=== PATIENT | female | born 1950 | race Caucasian/White ===

== ENCOUNTER 2017-02-21 16:08 | Outpatient (CLI) ==
[2013-06-13 15:41] VITALS: BMI 19.6
[2017-02-21 16:22] LABS: BASOPHILS # (AUTO) 0.1 K/uL (0-0.2); BASOPHILS % (AUTO) 0.7 % (0.0-3.0); EOSINOPHILS # (AUTO) 0.1 K/ul (0.0-0.7); EOSINOPHILS % (AUTO) 1.1 % (0.0-7.0); HEMATOCRIT 38.7 % (37.0-47.0); HEMOGLOBIN 13.5 g/dl (12.0-16.0); IMMATURE GRANULOCYTE % (AUTO) 0.3 % (0.0-5.0); LYMPHOCYTES % (AUTO) 27.6 (10.0-50.0); MEAN CORPUSCULAR HEMOGLOBIN 31.3 pg (27.0-31.0); MEAN CORPUSCULAR HGB CONC 34.9 (31.8-35.4); MEAN CORPUSCULAR VOLUME 89.8 fl (81.0-99.0); MONOCYTES # (AUTO) 0.4 K/uL (0.4-2.0); MONOCYTES % (AUTO) 5.8 (0-10); NEUTROPHILS # (AUTO) 4.6 K/ul (2.0-6.9); NEUTROPHILS % (AUTO) 64.5; PLATELET COUNT 371 10^3/uL (140-440); RED BLOOD COUNT 4.31 10^6/ul (4.20-5.40)
[2017-02-21 17:01] LABS: ALBUMIN 3.6 g/dL (3.4-5.0); ALBUMIN/GLOBULIN RATIO 1.06; ANION GAP 13.7; BILIRUBIN,TOTAL 0.29 mg/dL (0.00-1.20); BUN/CREATININE RATIO 12.08; CALCIUM 9.4 mg/dL (8.2-10.2); CHOL/HDL RATIO 2.3 (4.5-5.5); CREATININE 0.91 mg/dL (0.60-1.30); POTASSIUM 3.7 mmol/L (3.5-5.10)
== END 2017-02-21 16:09 | disposition home or self-care (01) ==
LOC: LAB 16:08
PROVIDERS: ATTEND Emergency Medicine
DX: I25.10 Atherosclerotic heart disease of native coronary artery without angina pectoris (principal); I11.9 Hypertensive heart disease without heart failure; E78.5 Hyperlipidemia, unspecified
CPT/HCPCS: 36415; 80053; 80061; 84443; 85025

== ENCOUNTER 2017-08-24 14:05 | Inpatient (IN) ==
[2017-08-24] MEDS ORDERED: TYLENOL PO PRN (14:39)
[2017-08-24 14:58] VITALS: BMI 21.1
[2017-08-24] MEDS ORDERED: ZITHROMAX PO SCH (15:30)
--- NOTE | 2017-08-24 15:43 | DI ---
EXAM: CHEST FRONTAL VIEW HISTORY: Sepsis. COMPARISON: 04/20/2016 FINDINGS: Heart size remains within normal limits. Mild hyperinflation. Diffuse chronic-appearing interstitial changes with no obvious consolidated pneumonia, pleural fluid, pneumothorax or vascular congestion. Possible contrast agent within some the left upper bowel. IMPRESSION: No acute cardiopulmonary process.
[2017-08-24] MEDS ORDERED: FLEXERIL PO PRN (15:45)
[2017-08-24] MEDS ORDERED: NITROSTAT SL PRN (15:45)
[2017-08-24] MEDS: DEXTROSE 5%-1/2NS IV SOLUTION 1,000 ML IV SCH (16:36)
[2017-08-24] MEDS: ROCEPHIN 1 GM in SODIUM CHLORIDE 50 ML IV SCH (16:36)
[2017-08-24] MEDS: XOPENEX 1.25 MG NEB SCH ×3 (16:56→22:48)
[2017-08-24] MEDS: TAMIFLU PO SCH ×2 (17:58→21:04)
[2017-08-24] MEDS ORDERED: PRAVACHOL PO SCH (21:00)
[2017-08-24] MEDS ORDERED: CALCIUM CARBONATE PO SCH (21:00)
[2017-08-24] MEDS ORDERED: CALCIUM 500 + VIT D 200 MG TABLET PO SCH (21:00)
[2017-08-24] MEDS ORDERED: TOPROL XL PO SCH (21:00)
[2017-08-24] MEDS ORDERED: LIPITOR PO SCH (21:00)
[2017-08-24] MEDS ORDERED: ULTRAM PO SCH (21:00)
[2017-08-24] MEDS ORDERED: KLONOPIN PO SCH (21:00)
[2017-08-24] MEDS ORDERED: VITAMIN D3 PO SCH (21:00)
[2017-08-24] MEDS ORDERED: PLAVIX PO SCH (21:00)
[2017-08-24] MEDS ORDERED: NON-FORMULARY MEDICATION (Atorvastatin Calcium [Lipitor] 40 MG) PO SCH (21:00)
[2017-08-24] MEDS ORDERED: [UNRECOGNIZED DRUG - OTHER] PO SCH (21:00)
[2017-08-24] MEDS: TESSALON PERLES PO PRN (21:13)
[2017-08-24] MEDS: SOLU-MEDROL 125 MG IVP SCH (22:14)
[2017-08-25] MEDS ORDERED: ULTRAM PO PRN (02:15)
[2017-08-25] MEDS: XOPENEX 1.25 MG NEB SCH ×4 (05:03→11:00)
[2017-08-25] MEDS: SOLU-MEDROL 125 MG IVP SCH ×2 (06:30→13:00)
[2017-08-25] MEDS: DEXTROSE 5%-1/2NS IV SOLUTION 1,000 ML IV SCH (06:31)
[2017-08-25] MEDS: TESSALON PERLES PO PRN (08:03)
[2017-08-25] MEDS: ROCEPHIN 1 GM in SODIUM CHLORIDE 50 ML IV SCH (08:03)
[2017-08-25] MEDS: TAMIFLU PO SCH (08:03)
[2017-08-25 11:25] VITALS: BP 92/60; TEMP 97.8
--- NOTE | 2017-08-25 12:28 | PCM.PROG ---
Attending Provider: ATTENDING PROVIDER: Dr. CARYL GUAMAN This patient is seen with Luisa Nick, Nurse Practitioner. DATE OF SERVICE: 08/25/17 SUBJECTIVE: This 67 year old WHITE/ F was hospitalized 08/24/17. Alert, sitting up in the bed. Fever last night. Chest x-ray normal. Feeling much better REVIEW OF SYSTEMS: CONSTITUTIONAL: No night sweats. No fatigue, malaise, lethargy. Fever. Aches. HEENT: Eyes: No visual changes. No eye pain. No eye discharge. ENT: No runny nose. No epistaxis. No sinus pain. No odynophagia. No congestion. RESPIRATORY: Cough, no congestion. No hemoptysis. No shortness of breath. CARDIOVASCULAR: No angina symptoms. No CHF symptoms. No atypical chest pain for CAD. No palpitations. No orthopnea.. GASTROINTESTINAL: No abdominal pain. No nausea or vomiting. No diarrhea or constipation. No hematemesis. No hematochezia. GENITOURINARY: No urgency. No frequency. No dysuria. No hematuria. No obstructive symptoms. No discharge. No pain. No significant abnormal bleeding. MUSCULOSKELETAL: No musculoskeletal pain; no joint swelling. NEUROLOGICAL: Awake, alert, oriented to time, place and person. No headache. No neck pain. No syncope. No seizures. No dizziness. PSYCHIATRIC: Not anxious. No depression. No suicidal thoughts. No homicidal thoughts. SKIN: No rash. No lesions. No wounds. ENDOCRINE: No unexplained weight loss. No weight gain. HEMATOLOGIC/LYMPHATIC: No anemia. No purpura. No petechiae. No prolonged or excessive bleeding. No palpable lymph nodes. PHYSICAL EXAMINATION: GENERAL: The patient is awake, alert and oriented, lying/sitting in bed in no distress. VITAL SIGNS: Temperature 97.6 F, Pulse 66, Respiratory Rate 20, BP 88/60, Pulse Ox 89% HEENT: Head normocephalic, atraumatic. Eyes: Extraocular muscles are intact. Pupils are equal, round and reactive to light and accommodation. Ears: No lesions. Nose appeared normal. Throat: No exudate or erythema. NECK: Supple. No JVD, no carotid bruit. No lymphadenopathy or thyromegaly. LUNGS: Diminished breath sounds bilaterally. Clear to auscultation. Percussion note normal. Chest symmetrical. HEART: S1, S2, no S3. No murmurs. No cyanosis or clubbing. No ascites. Pulses: Dorsalis pedis and posterior tibial pulses +1 to +2 both sides. ABDOMEN: Soft. Non-tender. Bowel sounds active. No CVA tenderness. No mass felt. EXTREMITIES: No edema. Full range of motion of all extremities, equal. NEUROLOGIC: No focal deficit. Cranial nerves II through XII are grossly intact. No headache, no double vision or headache. SKIN: Not dry. Intact. Turgor-normal. LYMPHATIC: No palpable lymph nodes/no lymphedema. MUSCULOSKELETAL: Normal joints with no swelling. Muscle tone is normal. LAB REVIEW: 08/25/17 05:30 08/25/17 05:30 08/25/17 05:30: Sodium 133 L, Potassium 4.0, Chloride 102, Carbon Dioxide 20 L, Anion Gap 15.0, BUN 10, Creatinine 0.67, Estimated GFR (MDRD) 88.00, BUN/ Creatinine Ratio 14.92, Glucose 204 H D, Calcium 8.7, Total Bilirubin 0.3, AST 31, ALT 13, Alkaline Phosphatase 83, Total Protein 6.7, Albumin 3.2 L, Globulin 3.5, Albumin/Globulin Ratio 0.91 08/25/17 05:30: WBC 5.59, RBC 4.19 L, Hgb 12.9, Hct 38.3, MCV 91.4, MCH 30.8, MCHC 33.7, RDW Coeff of An 12.9, Plt Count 277, Immature Gran % (Auto) 0.4, Neut % (Auto) 84.9, Lymph % (Auto) 12.2, [place] % (Auto) 2.1, Eos % (Auto) 0.0, Baso % (Auto) 0.4, Immature Gran # (Auto) 0.0, Neut # 4.8, Lymph # 0.7, [place] # 0.1 L, Eos # 0.0, Baso # 0.0 08/24/17 19:58: Urine Color Yellow, Urine Clarity Clear, Urine pH 6.0, Ur Specific [place] 1.020, Urine Protein 2+, Urine Glucose (UA) Negative, Urine Ketones Trace, Urine Blood 2+, Urine Nitrite Negative, Urine Bilirubin 1+, Urine Urobilinogen 0.2, Ur Leukocyte Esterase Negative, Urine Microscopic RBC 10 -20, Urine Microscopic WBC 0-2, Ur Squamous Epith Cells 5-10, Ur Renal Epithelial Cell 0-2, Amorphous Sediment 1+, Urine Bacteria 1+, Urine Mucus Trace 08/24/17 15:40: Direct Bilirubin 0.16 08/24/17 15:40: Lactic Acid 6.6 08/24/17 15:40: Procalcitonin < 0.05 08/24/17 15:40: Sodium 133 L, Potassium 4.0, Chloride 101, Carbon Dioxide 20 L, Anion Gap 16.0, BUN 12, Creatinine 0.66, Estimated GFR (MDRD) 90.00, BUN/ Creatinine Ratio 18.18, Glucose 100, Calcium 8.9, Total Bilirubin < 0.3, AST 34 , ALT 13, Alkaline Phosphatase 88, Total Protein 7.0, Albumin 3.6, Globulin 3.4 , Albumin/Globulin Ratio 1.06 08/24/17 15:40: PT 9.9, INR 0.97, APTT 27.2 08/24/17 15:40: WBC 7.63, RBC 4.30, Hgb 13.2, Hct 39.1, MCV 90.9, MCH 30.7, MCHC 33.8, RDW Coeff of An 13.0, Plt Count 286, Immature Gran % (Auto) 0.3, Neut % (Auto) 75.8, Lymph % (Auto) 13.6, [place] % (Auto) 9.6, Eos % (Auto) 0.0, Baso % (Auto) 0.7, Immature Gran # (Auto) 0.0, Neut # 5.8, Lymph # 1.0, Pine # 0.7, Eos # 0.0, Baso # 0.1 08/24/17 15:03: Influenza A (Rapid) Positive H, Influenza B (Rapid) Negative ASSESSMENT: Please see below. Influenza A COPD Mild dehydration, improved PLAN: The patient would like to go home later this evening. Tamiflu 75mg twice a day for 5 days Keflex 500mg three times a day times 10 day Prednisone 20mg twice a day time 2 day then 10mg twice a day times 5 days NEBS treatment at home Plan and coordination of the patient's care discussed in the presence of Commissary Agent and nurse. SCRIBED BY: DELANEY ANDRADE Mineralogy Professor scribed while in presence of service performed by Dr. Guaman/Luisa Nick APRN on 08/25/17 (0200)
--- NOTE | 2017-08-25 13:38 | CM.DICTOOL ---
ADMISSION: 08/24/17 14:05 DISCHARGE: August 25, 2017 DATE OF SERVICE: 08/25/17 FINAL DIAGNOSIS Influenza A Fever Dehydration Pleuritic Pain CAD with stent application PAD, Left subclavian stenosis Hypertension Dyslipidemia Sleep Apnea COPD History of Cataracts Generalized Anxiety Disorder Paroxysmal SVT LAST VITALS Temp Pulse Resp BP Pulse Ox 97.8 F 68 16 92/60 89 L 08/25/17 10:00 08/25/17 10:00 08/25/17 10:00 08/25/17 10:00 08/25/17 06:00 ACTIVE HOME MEDICATIONS Atorvastatin Calcium (Lipitor) 40 mg PO BEDTIME [facility] [place] Last Admin: 08/24/17 21:05 Dose: 40 mg Calcium/Vitamin D (Calcium 500 + Vit D 200 Mg Tablet) 2 each PO BEDTIME [facility] [place] Last Admin: 08/24/17 21:05 Dose: 2 each Clonazepam (Klonopin) 0.5 mg PO BEDTIME [facility] [place] Last Admin: 08/24/17 21:04 Dose: 0.5 mg Clopidogrel Bisulfate (Plavix) 75 mg PO BEDTIME [facility] [place] Last Admin: 08/24/17 21:04 Dose: 75 mg Cyclobenzaprine HCl (Flexeril) 10 mg PO BEDTIME PRN PRN Reason: Mild Pain Metoprolol Succinate (Toprol Xl) 50 mg PO BEDTIME [facility] [place] Last Admin: 08/24/17 21:05 Dose: 50 mg Nitroglycerin (Nitrostat) 0.4 mg SL Q5MIN X 3 DOSES PRN PRN Reason: Angina Tramadol HCl (Ultram) 50 mg PO BID PRN PRN Reason: pain ALLERGIES codeine Adverse Reaction (Verified 08/24/17 14:45) latex Adverse Reaction (Verified 06/13/13 16:26) NEW PRESCRIPTIONS: Keflex 500 mg TID for 10 days Tamiflu 75 mg BID for 4 days Prednisone 20 mg BID for 2 days, then 10 mg BID for 5 days. Take with food SMOKING: Advised to stop smoking DISEASE SPECIFIC EDUCATION: Influenza Medications Use of steroids and risk of GI upset, bone demineralization LAB REVIEW: 08/25/17 05:30 08/25/17 05:30 08/25/17 05:30: Sodium 133 L, Potassium 4.0, Chloride 102, Carbon Dioxide 20 L, Anion Gap 15.0, BUN 10, Creatinine 0.67, Estimated GFR (MDRD) 88.00, BUN/ Creatinine Ratio 14.92, Glucose 204 H D, Calcium 8.7, Total Bilirubin 0.3, AST 31, ALT 13, Alkaline Phosphatase 83, Total Protein 6.7, Albumin 3.2 L, Globulin 3.5, Albumin/Globulin Ratio 0.91 08/25/17 05:30: WBC 5.59, RBC 4.19 L, Hgb 12.9, Hct 38.3, MCV 91.4, MCH 30.8, MCHC 33.7, RDW Coeff of An 12.9, Plt Count 277, Immature Gran % (Auto) 0.4, Neut % (Auto) 84.9, Lymph % (Auto) 12.2, [place] % (Auto) 2.1, Eos % (Auto) 0.0, Baso % (Auto) 0.4, Immature Gran # (Auto) 0.0, Neut # 4.8, Lymph # 0.7, [place] # 0.1 L, Eos # 0.0, Baso # 0.0 08/24/17 19:58: Urine Color Yellow, Urine Clarity Clear, Urine pH 6.0, Ur Specific [place] 1.020, Urine Protein 2+, Urine Glucose (UA) Negative, Urine Ketones Trace, Urine Blood 2+, Urine Nitrite Negative, Urine Bilirubin 1+, Urine Urobilinogen 0.2, Ur Leukocyte Esterase Negative, Urine Microscopic RBC 10 -20, Urine Microscopic WBC 0-2, Ur Squamous Epith Cells 5-10, Ur Renal Epithelial Cell 0-2, Amorphous Sediment 1+, Urine Bacteria 1+, Urine Mucus Trace 08/24/17 15:40: Direct Bilirubin 0.16 08/24/17 15:40: Lactic Acid 6.6 08/24/17 15:40: Procalcitonin < 0.05 08/24/17 15:40: Sodium 133 L, Potassium 4.0, Chloride 101, Carbon Dioxide 20 L, Anion Gap 16.0, BUN 12, Creatinine 0.66, Estimated GFR (MDRD) 90.00, BUN/ Creatinine Ratio 18.18, Glucose 100, Calcium 8.9, Total Bilirubin < 0.3, AST 34 , ALT 13, Alkaline Phosphatase 88, Total Protein 7.0, Albumin 3.6, Globulin 3.4 , Albumin/Globulin Ratio 1.06 08/24/17 15:40: PT 9.9, INR 0.97, APTT 27.2 08/24/17 15:40: WBC 7.63, RBC 4.30, Hgb 13.2, Hct 39.1, MCV 90.9, MCH 30.7, MCHC 33.8, RDW Coeff of An 13.0, Plt Count 286, Immature Gran % (Auto) 0.3, Neut % (Auto) 75.8, Lymph % (Auto) 13.6, [place] % (Auto) 9.6, Eos % (Auto) 0.0, Baso % (Auto) 0.7, Immature Gran # (Auto) 0.0, Neut # 5.8, Lymph # 1.0, [place] # 0.7, Eos # 0.0, Baso # 0.1 08/24/17 15:03: Influenza A (Rapid) Positive H, Influenza B (Rapid) Negative PLAN: Discharge home Diet: Regular as tolerated Activity: Resume as tolerated May use nebulizer treatments 3-4 times daily Continue medications as listed on nursing discharge information sheet Do not continue previous prescription for Azithromycin or Prednsione. You have been given new Prescriptions Please wash your hands after coughing, influenza is spread via Droplet precautions. Cover your mouth with cough. An appointment is scheduled with Dr. Duff/Luisa Nick APRN on September 01 at 10:30 AM Mrs. Avila is alert and oriented x 3. She is independent with ADL"S and requires no assistance with ambulation. Meal intakes are good at 75%. She denies nausea. She is afebrile. Skin is intact and free of rashes, irritation of decubitus ulcers. Deshawn Duff MD Luisa Nick APRN
--- NOTE | 2017-08-29 09:27 | PN ---
DATE OF SERVICE: 08/25/17 SUBJECTIVE: The patient was hospitalized with acute bronchitis and has Influenza A. The patient's condition has improved remarkably. Hydration status has improved with IV fluids. She is on double antibiotics and coughing much less. The patient's flu type of symptoms seems to be under control. The patient wants to go home. She is stable and she is afebrile. The patient has coronary artery disease and is a heavy smoker. The patient is up and about. PHYSICAL EXAMINATION: HEENT: Head normocephalic, atraumatic. Eyes: Extraocular muscles are intact. Pupils are equal, round and reactive to light and accommodation. Ears: No lesions. Nose appeared normal. Throat: No exudate or erythema. NECK: Supple. No JVD, no carotid bruit. No lymphadenopathy or thyromegaly. LUNGS: Decreased breath sounds with mild wheeze. Percussion note normal. Chest symmetrical. HEART: S1, S2, no S3. No murmurs. No cyanosis or clubbing. No ascites. Pulses: Dorsalis pedis and posterior tibial pulses +1 to +2 both sides. ABDOMEN: Soft. Nontender. Bowel sounds active. No CVA tenderness. No mass felt. EXTREMITIES: No edema. Full range of motion of all extremities, equal. NEUROLOGIC: No focal deficit. Cranial nerves II through XII are grossly intact. No headache, no double vision or headache. SKIN: Not dry. Intact. Turgor - normal. LYMPHATIC: No palpable lymph nodes/no lymphedema. MUSCULOSKELETAL: Normal joints with no swelling. Muscle tone is normal. PLAN: 1. Counseling for smoking done. 2. To be discharged. CONDITION: Stable The patient was seen and examined with Nurse Practitioner. TIME SPENT: More than 30 minutes. Plan and coordination of the patient's care discussed in the presence of nurse. LORRIE
--- NOTE | 2017-09-08 14:34 | HP ---
DATE OF SERVICE: 08/24/17 HISTORY OF PRESENT ILLNESS: This 67-year-old female started feeling bad Monday. She had fever last night of 102. Pain with inspiration/cough. PAST MEDICAL HISTORY: Hypertension CAD with stent, Dr. [place] PAD Dyslipidemia COPD, smoking Sleep apnea Generalized anxiety disorder Carpal tunnel syndrome bilaterally Paroxysmal SVT Post menopause PAST SURGICAL HISTORY: Hysterectomy Bilateral breast implants Cardiac stent 01/18 Hernia Gallbladder REVIEW OF SYSTEMS: CONSTITUTIONAL: Fever and fatigue. HEENT: Sinus drainage and sore throat. RESPIRATORY: Positive for cough. No hemoptysis. CARDIOVASCULAR: Atypical chest pain for coronary artery disease -pleuritic type. No angina, CHF symptoms, palpitations or shortness of breath. GASTROINTESTINAL: Decreased appetite. No melena or abdominal pain. No GERD. GENITOURINARY: No hematuria, no polyuria. GRAIN ELEVATOR MAN: Positive for headache. No blackout, no dizziness, no double vision. MUSCULOSKELETAL: Osteoarthritis pain. No joint swelling. ENDOCRINE: No weight loss, no weight gain. SKIN: Dry. No rash. PSYCHIATRIC: Not anxious, no depression, no suicidal thoughts, no homicidal thoughts. SOCIAL HISTORY: Smoker, one pack per day, for 20+ years. . Alcohol: Occasional wine. No illicit drug use. Two children. FAMILY HISTORY: Father living. Mother . One brother, two sisters. MEDICATIONS: Toprol XL 50 mg p.o. bedtime Tramadol 50 mg p.o. b.i.d. Calcium 1200 mg one daily Plavix 75 mg one daily Neb treatment p.r.n. Klonopin 0.5 mg one daily Lipitor 40 mg one daily Nitroglycerin 4 mg p.r.n. Flexeril 10 mg h.s. p.r.n. Macrobid 100 mg b.i.d. + Pyridium 200 mg ALLERGIES: CODEINE, LATEX PHYSICAL EXAMINATION: V/S: Pulse 90, BP 110/70, temperature 100.8, 02 sat 97%, weight 122.6, height 5 '5". GENERAL APPEARANCE: Oriented times three. Pallor, clammy. HEENT: Normal. NECK: No JVP, no bruits. RESPIRATORY: Decreased breath sounds, rhonchi on the right. CARDIOVASCULAR: S1, S2, no S3, no murmurs. No cyanosis, clubbing. No ascites. GI/ABDOMEN: No tenderness. Bowel sounds are active. EXTREMITIES: No edema, pulses +1, equal. GRAIN ELEVATOR MAN: Deep tendon reflexes, sensory, motor and gait all normal. RECTAL/PELVIC: Colonoscopy - Dr. Turner 11/15. Pelvic: Hysterectomy; breasts - order given. LABS: Hemoglobin 13.2, hematocrit 39.1, white count 7.63, Influenza A positive. ASSESSMENT: 1. PNEUMONITIS 2. PLEURITIC PAIN - BILATERAL 3. FEVER 4. DEHYDRATION 5. CAD WITH STENT 01/18, CATHETERIZATION DR. [place] 6. PERIPHERAL ARTERIAL DISEASE LEFT SUBCLAVIAN STENOSIS 7. HYPERTENSION 8. DYSLIPIDEMIA 9. SLEEP APNEA 10. COPD 11. HISTORY OF CARPAL TUNNEL SYNDROME BILATERALLY 12. GENERALIZED ANXIETY DISORDER 13. PAROXYSMAL SVT PLAN: 1. Continue home medications 2. Routine telemetry orders 3. CBC, CMP 4. Chest x-ray 5. Rapid flu A & B test 6. Blood culture times two 7. Sputum culture 8. Rocephin 1 gm IV daily 9. Solu-Medrol 100 mg IV q.8hr 10. Xopenex neb treatment q.6h 11. Zithromax 500 mg p.o. daily times three days 12. D5 1/2 NS at 50 cc/hr 13. Tylenol 650 mg q.4h p.r.n. for fever 14. Tessalon Perles 100 mg t.i.d. p.r.n. p.o. 15. Urinalysis TIME SPENT: More than 70 minutes. MTDD
--- NOTE | 2017-09-08 14:36 | PN ---
CODING FOR BILLING 08/24/17 LEVEL 5 08/25/17 DISCHARGE MTDD
--- NOTE | 2017-09-09 12:48 | DS ---
DATE OF SERVICE: 08/25/17 FINAL DIAGNOSIS: 1. INFLUENZA A 2. FEVER 3. DEHYDRATION 4. PLEURITIC PAIN 5. CAD WITH STENT APPLICATION 6. PAD, LEFT SUBCLAVIAN STENOSIS 7. HYPERTENSION 8. DYSLIPIDEMIA 9. SLEEP APNEA 10. COPD 11. HISTORY OF CATARACTS 12. GENERALIZED ANXIETY DISORDER 13. PAROXYSMAL SVT DISCHARGE INSTRUCTIONS: Followup appointment: Dr. Duff/Luisa Nick APRN on 09/01/17 at 10:30 a.m. MEDICATIONS AT DISCHARGE: Lipitor 40 mg p.o. bedtime CONRADO Calcium/Vitamin D two each p.o. bedtime CONRADO Klonopin 0.5 mg p.o. bedtime CONRADO Plavix 75 mg p.o. bedtime CONRADO Flexeril 10 mg p.o. bedtime p.r.n. Toprol XL 50 mg p.o. bedtime CONRADO Nitrostat 0.4 mg SL q.5 min times three doses p.r.n. Ultram 50 mg p.o. b.i.d. p.r.n. NEW PRESCRIPTIONS: Keflex 500 mg t.i.d. for 10 days Tamiflu 75 mg b.i.d. for 4 days Prednisone 20 mg b.i.d. for 2 days, then 10 mg b.i.d. for 5 days. Take with food. DIET INSTRUCTIONS: Regular as tolerated ACTIVITY: Resume as tolerated SMOKING: Advised to stop smoking DISEASE SPECIFIC EDUCATION: Influenza Medications Use of steroids and risk of GI upset, bone demineralization HOSPITAL COURSE: 67-year-old white female who was a direct admit from our office. She had been experiencing fever for the past 24 to 36 hours. She also had increasing cough and congestion. She previously had been started on Keflex as a call out earlier in the week when she did not have any fever just congestion. This then worsened and she began running fever approximately 36 hours prior to admission. She was admitted, rapid Flu A & B test was done. She was positive for Influenza A. Chest x-ray revealed changes associated with COPD. There was no pneumonia. She did have some adventitious breath sounds consistent with bronchitis, mild shortness of breath and pleuritic type pain. She was admitted, placed on Solu- Medrol 125 mg IV q.8hr along with D5 1/2 NS of 50 cc/hr. Given Tylenol p.o. for the fever and started on Rocephin 1 gm IV. This morning the patient states she has felt remarkably better. She has not had any fever since the night before. Her breathing is much better with steroids. She request that she go home today. She states that she has to continue working. She currently breeds dogs. She has no complications associated with the flu. All of her labs appear to be stable. Kidney function is normal after IV fluids. BUN 10, creatinine 0.67. Again, vital signs have been steady. Temperature 97.6, heart rate 66, respirations 20. Her breathing is much better. She is experiencing minimal pain. We will discharge her home on Tamiflu 75 mg b.i.d. p.o. for the next four days to complete a five day course along with Keflex 500 mg t.i.d. for the next 7 days and Prednisone 20 mg b.i.d. for two days then 10 mg b.i.d. for five days. She is to continue with Tylenol as needed for fever. She is advised that she needs to quit smoking. She is contagious until she is afebrile for at least 24 hours. Instructed that she needs to continue with increased rest and increased fluids. If she still has fever she is to see us back next week. TIME SPENT: More than 60 minutes. LORRIE
== END 2017-08-25 15:05 | disposition home or self-care (01) | DRG 194 ==
LOC: MEDSURG A 14:05
PROVIDERS: ADMIT Internal Medicine; ATTEND Internal Medicine
DX: J10.1 Influenza due to other identified influenza virus with other respiratory manifestations (principal); I47.1 Supraventricular tachycardia; J44.0 Chronic obstructive pulmonary disease with (acute) lower respiratory infection; R50.9 Fever, unspecified; J20.9 Acute bronchitis, unspecified; I10 Essential (primary) hypertension; I25.10 Atherosclerotic heart disease of native coronary artery without angina pectoris; I77.89 Other specified disorders of arteries and arterioles; E86.0 Dehydration; R07.81 Pleurodynia; E78.5 Hyperlipidemia, unspecified; G47.30 Sleep apnea, unspecified; J44.9 Chronic obstructive pulmonary disease, unspecified; F41.1 Generalized anxiety disorder; F17.200 Nicotine dependence, unspecified, uncomplicated; Z95.5 Presence of coronary angioplasty implant and graft; Z79.02 Long term (current) use of antithrombotics/antiplatelets; Z79.899 Other long term (current) drug therapy
CPT/HCPCS: 36415; 80053; 81001; 82248; 83605; 84145; 85025; 85610; 85730; 87040; 87070; 87086; 87804; 94640

== ENCOUNTER 2018-03-15 09:03 | Outpatient (CLI) | payer OTHER ==
--- NOTE | 2018-03-15 10:57 | US ---
Exam: Hassan-scale and spectral color Doppler ultrasonographic evaluation of the carotids with [place] m analysis. Reason for exam: Syncope. Comparison: 03/06/2013. FINDINGS: There is a small amount of atheromatous plaque in the proximal right internal carotid artery The right ECA measures 0.8 meters per second Right CCA measures 0.6 / 0.2 meters per second. Right internal carotid artery peak systolic velocity measures 0.8 meters per second Right internal carotid artery/CCA PSV ratio measures 1.3 Right internal carotid artery end-diastolic velocity measures 0.3 meters per second There is normal antegrade right vertebral artery flow. Atheromatous plaque is seen in the proximal left internal carotid artery Left ECA measures 0.7 meters per second Left CCA measures 0.6 / 0.2 meters per second. Left internal carotid artery peak systolic velocity measures 0.9 meters per second Left internal carotid artery/CCA PSV ratio measures 1.7 Left internal carotid artery end-diastolic velocity measures 0.4 meters per second There is normal antegrade left vertebral artery flow. Impression: 1. No ultrasonographic evidence of significant stenotic disease is seen by peak systolic velocity viki surements in the right or left internal carotid arteries. 2. Normal antegrade vertebral artery flow bilaterally
--- NOTE | 2018-03-15 11:18 | DI ---
Exam: Two views of the chest. Comparison: 08/24/2017. Reason for exam: Chronic obstructive pulmonary disease smoker. FINDINGS: No pneumothorax, pleural effusion, or focal consolidation. The cardiac silhouette is not enlarged. The imaged osseous structures appear grossly unremarkable without acute fracture. Impression: No acute cardiopulmonary process.
--- NOTE | 2018-03-16 09:32 | MAMMO ---
EXAM: Digital screening mammogram with 3-D tomosynthesis and CAD HISTORY: Screening mammogram COMPARISON: Mammogram 03/21/2013 and 04/24/08 FINDINGS: Bilateral CC and MLO views of the breasts were performed digitally and demonstrate scatter ed fibroglandular breast density. Breast implants are in place and unchanged. Benign calcifications are present. There is no abnormal nodule or calcification. There is no significant interval change. IMPRESSION: No new suspicious calcification or mass RECOMMENDATION: Annual screening mammogram BIRADS category II: Benign findings
== END 2018-03-15 09:04 | disposition home or self-care (01) ==
LOC: RAD 09:03
PROVIDERS: ATTEND Internal Medicine
DX: Z12.31 Encounter for screening mammogram for malignant neoplasm of breast (principal); I25.10 Atherosclerotic heart disease of native coronary artery without angina pectoris; R55 Syncope and collapse; J44.9 Chronic obstructive pulmonary disease, unspecified; F17.210 Nicotine dependence, cigarettes, uncomplicated
CPT/HCPCS: 77067

== ENCOUNTER 2018-03-22 07:13 | Outpatient (CLI) | payer OTHER | END 2018-03-22 07:14 | disposition home or self-care (01) | LOC: CAR 07:13 | PROVIDERS: ATTEND Internal Medicine | DX: R06.02 Shortness of breath (principal); J44.9 Chronic obstructive pulmonary disease, unspecified; I25.10 Atherosclerotic heart disease of native coronary artery without angina pectoris; Z95.5 Presence of coronary angioplasty implant and graft; I47.1 Supraventricular tachycardia | CPT/HCPCS: 93005; 93010 ==

== ENCOUNTER 2018-05-28 14:12 | Emergency (ER) | payer OTHER ==
[2018-05-28 14:23] VITALS: BP 120/80; TEMP 98.9; BMI 20.9
[2018-05-28] MEDS ORDERED: MORPHINE 2 MG/ML SYRINGE IM STA (15:00)
[2018-05-28] MEDS ORDERED: ZOFRAN 4 MG/2 ML IM STA (15:00)
--- NOTE | 2018-05-28 15:54 | CT ---
EXAM: CT of the abdomen pelvis without contrast History: Left flank pain and right flank pain. Comparison: CT abdomen pelvis 06/14/2013 Technique: Multiplanar CT images through the abdomen pelvis were obtained without the administration of IV contrast Findings: Partially visualized bilateral breast implants. Lung bases are free of consolidation. No acute osse ous abnormalities. Severe degenerative disc disease at L4-L5 and moderate to severe degenerative disc disease at L5 and S1. Status post cholecystectomy. No renal stones and no hydronephrosis. No focal liver or splenic lesio ns. Liver is mildly enlarged. No peripancreatic inflammation. Adrenal glands are unremarkable. No ureteral calculi. No dilated loops of bowel. The appendix is normal. Scattered colonic stool. At herosclerotic vascular calcifications. No bladder wall thickening. No free air and no ascites. No inflammatory stranding. Colonic diverticulosis. Uterus is not seen. Impression: 1. No acute intra-abdominal or pelvic process. 2. No renal or ureteral calculi and no hydronephrosis. 3. Mild hepatomegaly. 4. Moderate to severe degenerative changes in the lower lumbar spine. 5. Colonic diverticulosis.
--- NOTE | 2018-05-28 16:43 | ED.PDOC ---
General ED Provider: Dr. DAR TABARES Chief Complaint: Kidney Stone Stated Complaint: back pain Time Seen by Physician: 14:13 Mode of Arrival: Walk-In Information Source: Patient Exam Limitations: No limitations Primary Care Provider: CARYL GUAMAN Nursing and Triage Documentation Reviewed and Agree: Yes Does patient meet sepsis criteria?: Yes If yes, has appropriate treatment been initiated?: No System Inflammatory Response Syndrome: Not Applicable Sepsis Protocol: For patient's 13 years and over: Temp is 96.8 and below OR 101 and greater Pulse >90 BPM Resp >20/minute Acutely Altered Mental Status Are patient's symptoms suggestive of a new infection, such as: -Pneumonia -Skin, Soft Tissue -Endocarditis -UTI -Bone, Joint Infection -Implantable Device -Acute Abdominal Infection -Wound Infection -Meningitis -Blood Stream Catheter Infection -Unknown Musculoskeletal Complaint Exam - Back Pain Complaint/Exam Mechanism of Injury: Reports: No known trauma Onset/Duration: 1 day [address] long distance developed low back pain and flank pain Symptoms Are: Still present Timing: Constant Episodes Lasting: Hours Initial Severity: Moderate Current Severity: Moderate Location: Reports: Discrete Character: Reports: Aching Aggravating: Reports: Movements, Lifting, Bending, Walking Alleviating: Reports: Rest, Position Associated Signs and Symptoms: Reports: Flank pain (right). Denies: Swelling, Redness, Bruising, Fever, Weakness, Numbness, Tingling, Abdominal pain, Bladder incontinence, Bowel incontinence, Weight loss, Pain with weight bearing Related History: Reports: Similar episode TAD Risk Factors: Reports: Hypertension AAA Risk Factors: Reports: Hypertension Cauda Equina Risk Factors: Reports: None Epidural Abcess Risk Factors: Reports: None Focal Tenderness: No Paraspinal Muscle Tenderness: No Paraspinal Muscle Spasm: No Scoliosis: No Lordosis: No Kyphosis: No SLR Test: Right Negative, Left Negative Hip Motion Testing Pain: Right Negative, Left Negative Focal Weakness: Present: None Focal Sensory Loss: Present: None Gait: Present: Normal Differential Diagnoses: Renal Colic, Strain, Sprain Review of Systems - Review Of Systems Constitutional: Reports: No symptoms Eyes: Reports: No symptoms Ears, Nose, Mouth, Throat: Reports: No symptoms Respiratory: Reports: No symptoms Cardiac: Reports: No symptoms GI: Reports: No symptoms : Reports: No symptoms Musculoskeletal: Reports: Back pain Skin: Reports: No symptoms Neurological: Reports: No symptoms Endocrine: Reports: No symptoms Hematologic/Lymphatic: Reports: No symptoms All Other Systems: Reviewed and Negative Past Medical History - Past Medical History Previously Healthy: Yes Endocrine: Reports: Dyslipidemia Cardiovascular: Reports: Hypertension Respiratory: Reports: None Hematological: Reports: None Gastrointestinal: Reports: None Genitourinary: Reports: None Neuro/Psych: Reports: None Musculoskeletal: Reports: None Cancer: Reports: None Last Menstrual Period: unknown - Surgical History General Surgical History: Reports: None - Family History Family History: Reports: None - Social History Smoking Status: Current every day smoker, Heavy tobacco smoker Hx Substance Use: No Alcohol Screening: None Physical Exam - Physical Exam Appearance: Well-appearing, No pain distress, Well-nourished Eyes: TRINA, EOMI, Conjunctiva clear ENT: Ears normal, Nose normal, Oropharynx normal Respiratory: Airway patent, Breath sounds clear, Breath sounds equal, Respirations nonlabored Cardiovascular: RRR, Pulses normal, No rub, No murmur GI/: Soft, Nontender, No masses, Bowel sounds normal, No Organomegaly Musculoskeletal: Normal strength, ROM intact, No edema, No calf tenderness Skin: Warm, Dry, Normal color Neurological: Sensation intact, Motor intact, Reflexes intact, Cranial nerves intact, Alert, Oriented Psychiatric: Affect appropriate, Mood appropriate Interpretation - Radiology Interpretation Radiology Interpretation By: Radiologist Radiology Results: No acute changes Re-Evaluation - Re-Evaluation Time of Re-Evaluation: 15:00 Status: Improved Vital Signs Stable: Yes Pain Level: 2/10 Appearance: NAD Lungs: Clear Skin: Warm and Dry Neuro: Alert and Oriented X3 CV: RRR - Re-Evaluation Time of Re-Evaluation: 16:44 (HARPAL PRESENT, SLRS WERE NEGATIVE . CT REPORT VERBALY GIVEN REPORT PROVIDED ) Status: Improved Vital Signs Stable: Yes Pain Level: 0 Appearance: NAD Skin: Warm and Dry Neuro: Alert and Oriented X3 CV: RRR Critical Care Note - Critical Care Note Total Time (mins): 0 Course - Course Hematology/Chemistry: 05/28/18 15:08 05/28/18 15:08 Orders, Labs, Meds: Lab Review 05/28/18 05/28/18 05/28/18 15:08 15:08 15:08 WBC 12.87 H RBC 4.19 L Hgb 12.9 Hct 38.5 MCV 91.9 MCH 30.8 MCHC 33.5 RDW Coeff of An 13.1 Plt Count 367 Immature Gran % (Auto) 0.3 Neut % (Auto) 69.4 Lymph % (Auto) 21.1 [place] % (Auto) 7.8 Eos % (Auto) 1.0 Baso % (Auto) 0.4 Immature Gran # (Auto) 0.0 Neut # (Auto) 8.9 H Lymph # (Auto) 2.7 [place] # (Auto) 1.0 Eos # (Auto) 0.1 Baso # (Auto) 0.1 Sodium 136.5 L Potassium 3.90 Chloride 104.2 Carbon Dioxide 24.9 Anion Gap 11.30 BUN 9.4 Creatinine 0.65 Estimated GFR (MDRD) 91.00 BUN/Creatinine Ratio 14.46 Glucose 94.9 Calcium 8.92 Total Bilirubin 0.35 AST 23.9 ALT 8.0 Alkaline Phosphatase 102.1 Total Protein 7.50 Albumin 4.11 Globulin 3.39 Albumin/Globulin Ratio 1.21 Urine Color Yellow Urine Clarity Clear Urine pH 6.0 Ur Specific [place] 1.015 Urine Protein 1+ Urine Glucose (UA) Negative Urine Ketones Negative Urine Blood 2+ Urine Nitrite Negative Urine Bilirubin Negative Urine Urobilinogen 0.2 Ur Leukocyte Esterase Negative Urine Microscopic RBC 2-5 Urine Microscopic WBC 0-2 Ur Squamous Epith Cells 0-2 Orders Category Date Time Status CBC W/ AUTO DIFF Stat LAB 05/28/18 15:08 Completed COMPREHENSIVE METABOLIC PANEL Stat LAB 05/28/18 15:08 Completed URINALYSIS C & S IF INDICATED Stat LAB 05/28/18 15:08 Completed Morphine Sulfate [Morphine 2 mg/ml Syringe] MEDS 05/28/18 15:00 Discontinued 2 mg IM ONCE STA Ondansetron HCl/Pf [Zofran 4 mg/2 ml] MEDS 05/28/18 15:00 Discontinued 4 mg IM ONCE STA CT ABD/PEL WO RENAL STONE PROT Stat RADS 05/28/18 14:57 Completed Medications Discontinued Medications Generic Name Dose Route Start Last Admin Trade Name Freq PRN Reason Stop Dose Admin Morphine Sulfate 2 mg 05/28/18 15:00 05/28/18 15:39 Morphine 2 Mg/Ml Syringe IM 05/28/18 15:01 2 mg ONCE STA Administration Ondansetron HCl 4 mg 05/28/18 15:00 05/28/18 15:39 Zofran 4 Mg/2 Ml IM 05/28/18 15:01 4 mg ONCE STA Administration Vital Signs: Temp Pulse Resp BP Pulse Ox 05/28/18 14:13 98.9 F 91 H 20 120/80 97 Departure - Departure Time of Disposition: 16:44 Disposition: HOME SELF-CARE Discharge Problem: Back pain Qualifiers: Back pain location: low back pain Back pain laterality: midline Sciatica presence: without sciatica Hematuria Qualifiers: Glomerular morphologic changes: unspecified glomerular morphologic changes Instructions: Acute Low Back Pain (ED), Hematuria (ED) Condition: Good Pt referred to PMD for follow-up: Yes IPMP verified?: No Additional Instructions: Please call your Family Physician as soon as possible to schedule a follow-up appointment. Prescriptions: Hydrocodone/Acetaminophen [[place] 5-325 Tablet] 1 each PO Q6HR PRN #7 tablet PRN Reason: PAIN Allergies/Adverse Reactions: Allergies codeine Adverse Reaction (Verified 05/28/18 14:24) latex Adverse Reaction (Verified 05/28/18 14:24) Home Medications: Ambulatory Orders Clopidogrel Bisulfate [Plavix] 75 mg PO BEDTIME 06/13/13 Cyclobenzaprine HCl [Flexeril] 10 mg PO BEDTIME PRN 06/13/13 Metoprolol Succinate [Toprol Xl] 50 mg PO BEDTIME 06/13/13 Atorvastatin Calcium [Lipitor] 40 mg PO BEDTIME 08/24/17 Clonazepam [Klonopin] 0.5 mg PO BEDTIME PRN 08/24/17 Nitroglycerin 0.4 mg SL PRN PRN 08/24/17 Tramadol HCl 50 mg PO BID 08/24/17 Aspirin [Aspirin EC] 325 mg PO DAILY 05/28/18 Hydrocodone/Acetaminophen [[place] 5-325 Tablet] 1 each PO Q6HR PRN #7 tablet Disposition Discussed With: Patient, Family
== END 2018-05-28 16:49 | disposition home or self-care (01) ==
LOC: ED 14:12
DX: M54.5 Low back pain (principal); R31.9 Hematuria, unspecified; I10 Essential (primary) hypertension; F17.210 Nicotine dependence, cigarettes, uncomplicated; Z79.899 Other long term (current) drug therapy
CPT/HCPCS: 36415; 74176; 80053; 81001; 85025; 96372; 99283

== ENCOUNTER 2018-11-20 06:20 | Outpatient (CLI) | payer OTHER ==
--- NOTE | 2018-11-20 09:21 | STECHOSEST ---
Date of Test: 11/20/18 Ordering Physician: DR. CARYL GUAMAN Occupation : [employer] PERSON Reason for Exam: SOB, CHEST PAIN, CAD Smoking History: 20 PK/YRS Height : 65" Weight: 119 LBS Current Medications: METOPROLOL, PLAVIX, AVISTAR, KLONOPIN, BENADRYL Resting EKG: SINUS RHYTHM/ NO ACUTE CHANGES Target Heart Rate: 130/154 S-T SEGMENT STAGE MPH/GRADE HEART RATE BPM BLOOD PRESSURE mmhg RHYTHM +/- ELEVATION DEPRESSION SYMPTOMS At Rest 64 BPM 116/60 MMHG SR X NONE 1 1.7/10% 90 BPM 122/82 MMHG SR X NONE 2 2.5/12% 103 BPM 134/78 MMHG SR X NONE 3 3.4/14% 4 4.2/16% 5 5.0/18% Immediately after 116 BPM 134/178 MMHG SR X SHORT OF AIR Minutes Post Exercise 5:00 68 BPM 114/62 MMHG SR X NO COMMENTS Minutes Post Exercise Total Time: 6:40 Maximum Heart Rate Reached: 116 BPM Reason for Termination: SHORT OF AIR 97% Oxygen saturation on room air with exercises Mets 9.0 INTERPRETATION 1. NO EVIDENCE OF ISCHEMIC ST-T WAVE CHANGES FROM HEART RATE 64 BPM AT REST TO 116 BPM WITH EXERCISE 2. NO CHEST PAIN OR DISCOMFORT 3. BLOOD PRESSURE RESPONSE: NORMAL 4. NO ARRHYTHMIAS SESTAMIBI TO FOLLOW NORMAL LEFT VENTRICULAR CONTRACTILITY--RESTING AND POST EXERCISE MTDD
--- NOTE | 2018-11-20 09:52 | DI ---
EXAM: Two views of the chest. History: Short of breath and chest pain. Comparison: Chest radiograph 03/15/2018 Findings: Heart size is normal. No focal consolidation. No appreciable pleural fluid and no pneumo thorax. No acute osseous abnormalities. Hyperinflation with increase in retrosternal clear space. Impression: No acute cardiopulmonary process. Chronic obstructive pulmonary disease.
--- NOTE | 2018-11-20 11:57 | NM ---
Cardiac Stress Test HISTORY: Shortness of breath and chest pain. COMPARISON: None of this type. TECHNIQUE: Resting: The patient was injected with 12.0 mCi of 99m technetium Sestamibi (Cardiolite) intravenous ly after which a "resting" SPECT study of the heart was performed. Stress: The patient was stressed using a Jaime protocol and at the appropriate time injected with 32 .1 mCi of 99m technetium Sestamibi (Cardiolite) after which a "stress" SPECT study of the heart was p erformed. Gated images of the heart were also obtained to assess wall motion and calculate ejection fraction. For details of the stress protocol employed, reference is made to the separate report of t he performing physician. FINDINGS: The stress perfusion images demonstrate a generally uniform distribution of activity in th e left ventricular myocardium. The resting perfusion images demonstrate no evidence of significant r edistribution/ischemia. The left ventricular ejection fraction (LVEF) is 64 %. IMPRESSION: 1. Left ventricular myocardial perfusion is within normal limits. 2. The left ventricular ejection fraction (LVEF) is 64 %.
--- NOTE | 2018-11-22 08:27 | ECHOSTRESS ---
Date of Exam: 11/20/18 Ordering Physician: DR. CARYL GUAMAN Reason for Echo: SOB, CHEST PAIN, STRESS TEST--NO ISCHEMIA M-Mode Normal Adult Results LV Dimensions Normal Adult Results AoV Opening excursions >1.6 LVEDD-base- 3.5-5.8 Ao root dimensions 2.0-3.7 LVESD-base- 3.1-4.6 L. Atrium dimensions 1.9-3.8 Post. Wall thickness 0.8-1.1 IV septum (thickness) 0.7-1.2 Post. Wall excursion 0.72-1.3 Septal motion Systolic motion R. Ventricular cavity 1.5-2.0 LVEF 60% Paradoxical septal wall motion 2-D: NORMAL LEFT VENTRICULAR CONTRACTILITY--RESTING AND POST EXERCISE M-MODE: MV: AV: TV: PV: CHAMBER SIZE: WALL MOTION: NORMAL LEFT VENTRICULAR CONTRACTILITY--RESTING AND POST EXERCISE PERICARDIUM: INTERPRETATION: 1. NORMAL LEFT VENTRICULAR CONTRACTILITY--RESTING AND POST EXERCISE MTDD
--- NOTE | 2018-11-22 08:41 | ECHO2D ---
Date of Exam: 11/20/18 Ordering Physician: DR. CARYL GUAMAN Room #: OP Reason for Echo: SOB, CHEST PAIN M-Mode Normal Adult Results LV Dimensions Normal Adult Results AoV Opening excursions >1.6 >1.6 LVEDD-base- 3.5-5.8 3.1 Ao root dimensions 2.0-3.7 3.4 LVESD-base- 3.1-4.6 L. Atrium dimensions 1.9-3.8 2.7 Post. Wall thickness 0.8-1.1 1.1 IV septum (thickness) 0.7-1.2 1.2 Post. Wall excursion 0.72-1.3 NORMAL Septal motion NORMAL Systolic motion R. Ventricular cavity 1.5-2.0 NORMAL LVEF 60% 70% Paradoxical septal wall motion NORMAL 2-D : 2-D M Mode Echocardiogram was performed using apical four chamber and left parasternal long and short axis views. Mitral, tricuspid and aortic valves appear to be normal. Contractility of the left ventricle seems to be normal, so is the cavity size. Left atrial cavity size and aortic root appear to be normal. There is no pericardial effusion. There is no thrombus noted in the left ventricular or left aortic cavity. No mitral valve prolapse noted. M-MODE: MV: NORMAL AV: NORMAL TV: NORMAL PV: CHAMBER SIZE: NORMAL WALL MOTION: NORMAL PERICARDIUM: NORMAL INTERPRETATION: 1. BORDERLINE LEFT VENTRICULAR HYPERTROPHY 2. NORMAL LEFT VENTRICULAR CONTRACTILITY 3. NORMAL VALVES MTDD
== END 2018-11-20 06:21 | disposition home or self-care (01) ==
LOC: CAR 06:20
PROVIDERS: ATTEND Internal Medicine
DX: R06.02 Shortness of breath (principal); R07.9 Chest pain, unspecified; F17.210 Nicotine dependence, cigarettes, uncomplicated